=== PATIENT | male | born 1985 | race Caucasian/White ===

== ENCOUNTER 2023-01-31 02:33 | Emergency (ER) | payer OTHER ==
[~2023-01-31] VITALS: Ht 172.7 cm; Wt 86.2 kg
--- NOTE | 2023-01-31 03:14 | NUR ---
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 LAST ALCOHOL DRINK NO MEDICAL COMPLAINTS. PT A/OX4. TOLERATING R/A WELL WITH NO RESP DISTRESS. SAFETY MEASURES IN PLACE. 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 LAST ALCOHOL DRINK WAS 7PM LAST NIGHT. NO MEDICAL COMPLAINTS. PT A/OX4. TOLERATING R/A WELL WITH NO RESP DISTRESS. SAFETY MEASURES IN PLACE.
--- NOTE | 2023-01-31 03:15 | NUR ---
CARGO OPERATIONS AGENT AT PT'S BEDSIDE
--- NOTE | 2023-01-31 03:17 | NUR ---
COVID ANTIGEN SWAB COLLECTED AND SENT TO LAB
--- NOTE | 2023-01-31 03:19 | NUR ---
URINE COLLECTED AND SENT TO LAB
--- NOTE | 2023-01-31 03:21 | NUR ---
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 LAST ALCOHOL DRINK NO MEDICAL COMPLAINTS. PT A/OX4. TOLERATING R/A WELL WITH NO RESP DISTRESS. SAFETY MEASURES IN PLACE.
[2023-01-31] MEDS ORDERED: CHLORDIAZEPOXIDE HCL 25 MG CAPSULE ONE (03:38)
[2023-01-31 03:48] LABS: BASOPHILS # (AUTO) 0.1 K/uL (0.0-0.2); BASOPHILS % (AUTO) 1.3 % (0.0-2.0); EOSINOPHILS % (AUTO) 1.8 % (0.0-6.0); HEMATOCRIT 36 % (39-51); HEMOGLOBIN 12.1 g/dL (13.5-17.5); LYMPHOCYTES % (AUTO) 22.5 % (20.0-44.0); MEAN CORPUSCULAR HGB CONC 33 g/dl (31.0-36.0); MEAN CORPUSCULAR VOLUME 95 fL (80-96); MONOCYTES # (AUTO) 0.6 K/uL (0.1-1.30); MONOCYTES % (AUTO) 14.5 % (2.0-12.0); NEUTROPHILS # (AUTO) 2.6 K/uL (1.8-8.9); NEUTROPHILS % (AUTO) 59.9 % (43.0-81.0); PLATELET COUNT (AUTO) 62 K/uL (150-450); RED BLOOD CELL COUNT(AUTO) 3.84 MIL/uL (4.5-6.0); WHITE BLOOD COUNT (AUTO) 4.4 K/uL (4.3-11.0)
[2023-01-31 03:49] LABS: BILIRUBIN,URINE 2+ (NEGATIVE); COLOR,URINE AMBER (YELLOW); LEUKOCYTE ESTERASE ,URINE NEGATIVE (NEGATIVE); NITRITE, URINE NEGATIVE (NEGATIVE); PROTEIN,URINE TRACE mg/dl (NEGATIVE); UGLUCOSE NEGATIVE (NEGATIVE)
[2023-01-31 03:49] LABS: CALCIUM, SERUM 8.1 mg/dL (8.5-10.1); CARBON DIOXIDE 29 mmol/L (21-32); CHLORIDE 104 mmol/L (98-107); CREATININE 0.7 mg/dL (0.6-1.3); GLUCOSE 102 mg/dL (74-106); POTASSIUM 3.4 mmol/L (3.5-5.1); SODIUM SERUM 139 mmol/L (136-145); UREA NITROGEN, BLOOD 5 mg/dL (7-18)
[2023-01-31 03:55] LABS: ALANINE AMINOTRANSFERASE 62 U/L (12-78); ALBUMIN 3.3 g/dL (3.4-5.0); ALCOHOL, BLOOD 92 mg/dL (0-0); ALKALINE PHOSPHATASE 194 U/L (46-116); ASPARTATE AMINOTRANSFERASE 147 U/L (15-37); BILIRUBIN,DIRECT 2.6 mg/dL (0.0-0.2); TOTAL PROTEIN, SERUM 8.2 g/dL (6.4-8.2)
[2023-01-31 03:59] LABS: ACETAMINOPHEN < 10 ug/ml (10-30)
[2023-01-31] MEDS ORDERED: CHLORDIAZEPOXIDE HCL 25 MG CAPSULE PO ONE (04:00)
[2023-01-31] MEDS ORDERED: POTASSIUM CHLORIDE 20 MEQ TAB.PRT.SR PO ONE ×2 (04:57→05:00)
[2023-01-31] MEDS ORDERED: THIA100T88 PO (05:04)
[2023-01-31] MEDS ORDERED: FOLI0.8C PO (05:04)
[2023-01-31] MEDS ORDERED: CHLO25CA22 PO (05:05)
[2023-01-31 05:15] VITALS: BP 131/71
--- NOTE | 2023-01-31 05:16 | NUR ---
Patient discharged in stable condition. Rx Written and verbal after care instructions given. Patient verbalizes understanding of instruction. architect marine Edu aware and picked up pt for D/C.
[2023-01-31 09:03] LABS: BAND % (MANUAL) 3 % (0.0-5.0); BASOPHILS % (MANUAL) 0 % (0.0-2.0); EOSINOPHILS % (MANUAL) 1 % (0-4); LYMPHOCYTES % (MANUAL) 19 % (16-48); MONOCYTES % (MANUAL) 15 % (0-11.0); NEUTROPHILS % (MANUAL) 62 (42-76)
== END 2023-01-31 05:16 | disposition home or self-care (01) ==
LOC: ER 02:41
DX: K70.9 Alcoholic liver disease, unspecified (principal); E80.6 Other disorders of bilirubin metabolism; D69.6 Thrombocytopenia, unspecified; F10.239 Alcohol dependence with withdrawal, unspecified; Z20.822 Contact with and (suspected) exposure to COVID-19; Z90.49 Acquired absence of other specified parts of digestive tract; Z79.899 Other long term (current) drug therapy; Y90.4 Blood alcohol level of 80-99 mg/100 ml
CPT/HCPCS: 99283; 85025; 80048; 80076; 85007; 81003; 36415; 87426; 80143; 80320; 80307; C9803; G0480